=== PATIENT | female | born 1960 | race African-American/Black ===

== ENCOUNTER → 2017-09-29 | Outpatient (CLI) | payer BC | END | disposition home or self-care (01) | LOC: KCIC US 15:09 | DX: E04.2 Nontoxic multinodular goiter (principal); M79.89 Other specified soft tissue disorders | CPT/HCPCS: 76536 ==

== ENCOUNTER → 2018-06-15 | Outpatient (CLI) | payer BC ==
--- NOTE | 2018-06-15 17:30 | KCIC ---
Thyroid ultrasound HISTORY: Nontoxic multinodular goiter. Right thyroid: * Size (in centimeters): 5.3 x 1.3 x 1.6 * Numerous small nodules are identified throughout the right lobe. * Largest measures 8 mm, has a solid appearance with possible internal vascularity. Difficult to compare this with prior images. Isthmus: * Thickness (in millimeters): 3 Left thyroid: * Size (in centimeters): 4.9 x 1.2 x 1.8 * Numerous small nodules are identified throughout. * A larger nodule in the lower pole measures 6 mm and has a cystic morphology. * Another larger nodule just above this measures 7 mm, appears solid. * Although comparison is difficult, these are roughly similar in size to the prior examination. IMPRESSION: Bilateral thyroid nodules. It is difficult to compare many of these with the prior study, but no gross enlargement of any nodule is suspected. Electronically signed by: Jose Miguel Polo MD (06/15/2018 5:26 PM) [facility]
== END | disposition home or self-care (01) ==
LOC: KCIC US 09:36
PROVIDERS: ATTEND Physician Assistant Medical
DX: E04.2 Nontoxic multinodular goiter (principal)
CPT/HCPCS: 76536

== ENCOUNTER → 2018-09-02 | Outpatient (CLI) | payer BC ==
--- NOTE | 2018-09-02 09:12 | RAD ---
DATE: 09/02/2018 EXAM: MAMMO ANAID SCREENING BILATERAL HISTORY: Routine screening COMPARISON: 11/07/2015 This study was interpreted with the benefit of Computerized Aided Detection (CAD). Breast Density: HETERO The breast parenchyma is heterogenously dense, which could reduce sensitivity of mammography. Breast parenchyma level C. FINDINGS: 2-D and 3-D tomosynthesis imaging was performed in CC and MLO projections. An old breast biopsy marker is again noted posterolaterally on the left. No new or enlarging breast densities are seen. No suspicious microcalcifications are evident. IMPRESSION: Stable mammograms without evidence of malignancy. BI-RADS CATEGORY: 2 BENIGN FINDING(S) RECOMMENDED FOLLOW-UP: 12M 12 MONTH FOLLOW-UP PQRS compliance statement: Patient information was entered into a reminder system with a target due date for the next mammogram. Mammography is a sensitive method for finding small breast cancers, but it does not detect them all and is not a substitute for careful clinical examination. A negative mammogram does not negate a clinically suspicious finding and should not result in delay in biopsying a clinically suspicious abnormality. "Our facility is accredited by the [employer] Mammography [employer]."
== END | disposition home or self-care (01) ==
LOC: MAMMO 08:36
PROVIDERS: ATTEND Nurse Practitioner Family
DX: Z12.31 Encounter for screening mammogram for malignant neoplasm of breast (principal)
CPT/HCPCS: 77063; 77067

== ENCOUNTER → 2019-12-06 | Outpatient (CLI) | payer BC ==
[~2019-12-06] MED LIST: BECL10.62 IH
== END | disposition home or self-care (01) ==
LOC: LAB 13:29
PROVIDERS: ATTEND Ophthalmology
DX: Z01.818 Encounter for other preprocedural examination (principal); Z11.59 Encounter for screening for other viral diseases
CPT/HCPCS: C9803; U0003; 36415

== ENCOUNTER 2019-12-11 07:55 | Day surgery (SDC) | payer BC ==
[2019-12-11] MEDS: PHENYLEPHRINE 10% OPHTH SOLUTION 5ML BOTTLE. OS SCH ×3 (06:01→08:52)
[2019-12-11] MEDS: CYCLOPENTOLATE 1% OPHTH SOLUTION 2ML BOTTLE. OS SCH ×3 (06:01→08:52)
[~2019-12-11 07:55] MED LIST changes: -BECL10.62 IH; +CIPROFLOXACIN 0.3% OPHTH SOLUTION 5ML BOTTLE. OS ONE; +HYDROmorphone 2 MG/ML VIAL IV PRN; +IV RINGERS,LACTATED 1000ML 1,000 ML IV SCH; +LIDOCAINE 1% PF 2 ML VIAL. ID PRN; +LIDOCAINE 2% JELLY 6ML IN APPLICATOR. OS ONE; +MORPHINE SULFATE 2 MG/ML VIAL. IV PRN; +ONDANSETRON PF 4 MG/2 ML VIAL. IV PRN; +PROCHLORPERAZINE 10 MG/2 ML VIAL. IV PRN; +PROPARACAINE 0.5% OPHTH SOLUTION 15ML BOTTLE. OS ONE; +fentaNYL PF VIAL 100 MCG/2 ML VIAL IV PRN
[2019-12-11] MEDS ORDERED: BECL10.62 IH (08:30)
[2019-12-11] MEDS ORDERED: IV RINGERS,LACTATED 1000ML 1,000 ML IV SCH (08:45)
[2019-12-11] MEDS ORDERED: BALANCED SALT IRRIG OPHTH SOLN 15 ML BOTTLE. IO ONE (09:30)
[2019-12-11] MEDS ORDERED: NEO/POLYMYX/DEXAMETH OPHTH OINTMENT 3.5GM TUBE. OS ONE (09:30)
[2019-12-11] MEDS ORDERED: MIDAZOLAM HCL/PF 2 MG/2 ML VIAL. ONE (10:25)
[2019-12-11] MEDS ORDERED: LIDOCAINE 1%/PHENYLEPH 1.5% PF OPHTH 1 ML VIAL. IO ONE (10:33)
[2019-12-11] MEDS ORDERED: CHONDROIT-SOD-HYALURONATE KIT. IO ONE (10:33)
[2019-12-11] MEDS ORDERED: CHONDROITIN-SOD-HYALURONATE 0.5 ML DISP.SYRIN. IO ONE (10:33)
[2019-12-11] MEDS ORDERED: LIDOCAINE 1%/PHENYLEPH 1.5% PF OPHTH 1 ML VIAL. ONE (10:44)
[2019-12-11] MEDS ORDERED: BALANCED SALT IRRIG OPHTH SOLN 15 ML BOTTLE. ONE (10:44)
[2019-12-11] MEDS ORDERED: CHONDROIT-SOD-HYALURONATE KIT. ONE (10:44)
[2019-12-11] MEDS ORDERED: LIDOCAINE 2% JELLY 6ML IN APPLICATOR. ONE (10:47)
[2019-12-11 10:55] VITALS: BP 167/89
--- NOTE | 2019-12-11 11:16 | OP ---
DATE OF SURGERY: 12/11/2019 PREOPERATIVE DIAGNOSIS: Cataract of the left eye. PROCEDURE: Phacoemulsification with posterior chamber intraocular lens implantation of the left eye. INDICATION: Painless progressive visual loss with visually significant cataract and difficulty reading and driving. SURGEON: Nicola Kwok MD ANESTHESIA: Topical with monitored anesthesia care. DESCRIPTION OF PROCEDURE: The left eye was prepped with Betadine in the usual sterile fashion and draped. A paracentesis was performed followed by instillation of phenylephrine 2.5% and 1% lidocaine preservative-free on a 27-gauge cannula. A temporal clear corneal incision was made and viscoelastic injected in the anterior chamber. A capsulorrhexis was performed followed by hydroexpression of the nucleus and Viscoat sandwich. The phacoemulsification handpiece was used to remove the nucleus and the I/A handpiece was used to remove the remainder of the cortex. Viscoelastic was injected in the capsular bag. An [place] model [id number] with a power of 20.0 diopters was placed into the capsular bag. Balanced salt solution was used to hydrate the corneal wounds and the viscoelastic evacuated with the I/A handpiece. Once no leak was noted, Maxitrol was placed on the eye and the eye shielded and the patient was sent to the recovery room uneventfully. LENNY WILD MD DR: ANDRAE/macario JOB#: [id number] / [id number]
== END 2019-12-11 11:21 | disposition home or self-care (01) ==
LOC: SURG 07:55
PROVIDERS: ATTEND Ophthalmology
DX: H26.8 Other specified cataract (principal)
CPT/HCPCS: 66984; C1780; J0171; J0690; J1580; J2250; J3490

== ENCOUNTER 2019-12-21 07:54 | Day surgery (SDC) | payer BC ==
[~2019-12-21 07:54] MED LIST changes: +BALANCED SALT IRRIG OPHTH SOLN 15 ML BOTTLE. ONE; +BECL10.62 IH; +CHONDROIT-SOD-HYALURONATE KIT. ONE; +CIPROFLOXACIN 0.3% OPHTH SOLUTION 5ML BOTTLE. OD ONE; -CIPROFLOXACIN 0.3% OPHTH SOLUTION 5ML BOTTLE. OS ONE; -HYDROmorphone 2 MG/ML VIAL IV PRN; -IV RINGERS,LACTATED 1000ML 1,000 ML IV SCH; -LIDOCAINE 1% PF 2 ML VIAL. ID PRN; +LIDOCAINE 2% JELLY 6ML IN APPLICATOR. OD ONE; +LIDOCAINE 2% JELLY 6ML IN APPLICATOR. ONE; -LIDOCAINE 2% JELLY 6ML IN APPLICATOR. OS ONE; -MORPHINE SULFATE 2 MG/ML VIAL. IV PRN; +NEO/POLYMYX/DEXAMETH OPHTH OINTMENT 3.5GM TUBE. ONE; -ONDANSETRON PF 4 MG/2 ML VIAL. IV PRN; -PROCHLORPERAZINE 10 MG/2 ML VIAL. IV PRN; +PROPARACAINE 0.5% OPHTH SOLUTION 15ML BOTTLE. OD ONE; -PROPARACAINE 0.5% OPHTH SOLUTION 15ML BOTTLE. OS ONE; -fentaNYL PF VIAL 100 MCG/2 ML VIAL IV PRN
[2019-12-21] MEDS ORDERED: CHONDROITIN-SOD-HYALURONATE 0.5 ML DISP.SYRIN. OD ONE (08:00)
[2019-12-21] MEDS: PHENYLEPHRINE 10% OPHTH SOLUTION 5ML BOTTLE. OD SCH ×3 (08:41→08:51)
[2019-12-21] MEDS: CYCLOPENTOLATE 1% OPHTH SOLUTION 2ML BOTTLE. OD SCH ×3 (08:41→08:51)
[2019-12-21] MEDS ORDERED: IV RINGERS,LACTATED 1000ML 1,000 ML IV ONE (08:45)
[2019-12-21] MEDS ORDERED: MIDAZOLAM HCL/PF 2 MG/2 ML VIAL. ONE (09:28)
[2019-12-21] MEDS ORDERED: LIDOCAINE 1% PF 2 ML VIAL. ONE (09:35)
[2019-12-21 10:30] VITALS: BP 130/58
--- NOTE | 2019-12-21 10:40 | OP ---
DATE OF SURGERY: 12/21/2019 PREOPERATIVE DIAGNOSIS: Cataract of the right eye. PROCEDURE: Phacoemulsification with posterior chamber intraocular lens implantation of the right eye. SURGEON: Lenny Petersen MD ANESTHESIA: Topical with monitored anesthesia care. DESCRIPTION OF PROCEDURE: The right eye was prepped with Betadine in the usual sterile fashion and draped. A paracentesis was performed followed by instillation of 1% preservative-free lidocaine. A temporal clear corneal incision was made followed by instillation of viscoelastic. A capsulorrhexis was performed followed by hydrodissection and hydroexpression of the nucleus with Viscoat sandwich. The phacoemulsification handpiece was used to remove the nucleus. The I/A handpiece was used to remove the remainder of the cortex. Viscoelastic was injected in the capsular bag and an [place], model SN60WF with a power of 20.0 diopters was placed into the capsular bag. Balanced salt solution was used to hydrate the corneal wounds and the viscoelastic evacuated with the I/A handpiece. Once no leak was noted, Maxitrol was placed on the eye and this eye was shielded and the patient was sent to the recovery room uneventfully. Please note there was a small abrasion due to the placement of the eyelash drape for which additional Viscoat was placed on top of the repositioned epithelium. LENNY PETERSEN MD DR: ANDRAE/nts JOB#: [id number] / [id number]
== END 2019-12-21 10:55 | disposition home or self-care (01) ==
LOC: SURG 07:54
PROVIDERS: ATTEND Ophthalmology
DX: H26.8 Other specified cataract (principal); Z88.0 Allergy status to penicillin; Z79.899 Other long term (current) drug therapy
CPT/HCPCS: 66984; C1780; J0171; J0690; J1580; J2250; J3490

== ENCOUNTER → 2020-01-16 | Outpatient (CLI) | payer BC ==
[2019-12-21 10:30] VITALS: BP 130/58
[~2020-01-16] MED LIST changes: -BALANCED SALT IRRIG OPHTH SOLN 15 ML BOTTLE. ONE; -CHONDROIT-SOD-HYALURONATE KIT. ONE; -CIPROFLOXACIN 0.3% OPHTH SOLUTION 5ML BOTTLE. OD ONE; -LIDOCAINE 2% JELLY 6ML IN APPLICATOR. OD ONE; -LIDOCAINE 2% JELLY 6ML IN APPLICATOR. ONE; -NEO/POLYMYX/DEXAMETH OPHTH OINTMENT 3.5GM TUBE. ONE; -PROPARACAINE 0.5% OPHTH SOLUTION 15ML BOTTLE. OD ONE
--- NOTE | 2020-01-16 20:12 | KCIC ---
Bilateral digital screening mammograms with 3-D tomosynthesis: Reason for examination: Routine screening. Comparison is made to previous studies dated back to 09/26/2014. Bilateral mammograms in CC and oblique projections were obtained with 2-D imaging and 3-D tomosynthesis imaging on a Siemens Inspiration unit and reviewed on the workstation. Interpretation was made with the benefit of CAD. The skin and nipples show no abnormalities. No abnormal axillary lymph nodes are seen. The breast parenchyma is heterogeneously dense. (Breast density: Category C.) There are small nodules consistent with intramammary lymph nodes bilaterally which are stable. There are no new dominant masses, suspicious calcifications or architectural distortion. Biopsy clip remains present on the left. Impression: No evidence of malignancy. Recommend routine screening. Your patient's mammogram demonstrates that she has dense breast tissue (breast density category C or D), which could hide abnormalities, and if she has other risk factors for breast cancer that have been identified, she might benefit from supplemental screening tests that may be suggested by you as her ordering physician. Dense breast tissue, in and of itself, is a relatively common condition. Therefore, this information is not provided to cause undue concern, but rather to raise your awareness and to promote discussion with your patient regarding the presence of other risk factors, in addition to dense breast tissue. Your patient's mammography results will be sent to her. BI-RAD Category 2: Benign. "Our facility is accredited by the [employer] Mammography Program." This patient's information has been entered into a reminder system for the patient to be notified with the results of her examination and a target date for the next mammogram. Electronically signed by: Sherri Traore MD (01/16/2020 8:09 PM) [id number]
== END | disposition home or self-care (01) ==
LOC: KCIC MAMMO 08:08
PROVIDERS: ATTEND Nurse Practitioner Family
DX: Z12.31 Encounter for screening mammogram for malignant neoplasm of breast (principal); N64.89 Other specified disorders of breast
CPT/HCPCS: 77063; 77067

== ENCOUNTER → 2021-04-16 | Outpatient (CLI) | payer BC ==
--- NOTE | 2021-04-16 16:32 | KCIC ---
Bilateral digital screening mammograms with 3-D tomosynthesis: Reason for examination: Routine screening. Comparison is made to previous studies dated back to 09/26/2014. Bilateral mammograms in CC and oblique projections were obtained with 2-D imaging and 3-D tomosynthes is imaging on a Siemens Inspiration unit and reviewed on the workstation. Interpretation was made wit h the benefit of CAD. The skin and nipples show no abnormalities. No abnormal axillary lymph nodes are seen. The breast par enchyma shows scattered fatty and fibroglandular density. (Breast density: Category B.) There continu e to be small circumscribed nodules bilaterally consistent with intramammary lymph nodes which are st able. There are no new dominant masses, suspicious calcifications or architectural distortion. Impression: No evidence of malignancy. Recommend routine screening. BI-RAD Category 2: Benign. "Our facility is accredited by the [employer] Mammography Program." This patient's information has been entered into a reminder system for the patient to be notified wit h the results of her examination and a target date for the next mammogram. Electronically signed by: Sherri Traore MD (04/16/2021 4:29 PM) [id number]
== END ==
LOC: KCIC MAMMO 15:39
PROVIDERS: ATTEND Nurse Practitioner Family
DX: Z12.31 Encounter for screening mammogram for malignant neoplasm of breast (principal)
CPT/HCPCS: 77063; 77067